=== PATIENT | male | born 1940 | race Caucasian/White ===

== ENCOUNTER 2020-08-02 08:03 | Outpatient (CLI) | payer MEDICARE, OTHER, SELFPAY ==
--- NOTE | 2020-08-02 08:15 | XRR_ITS ---
PROCEDURE INFORMATION: Exam: XR Abdomen, 1 View Exam date and time: 08/02/2020 8:25 AM Age: 79 years old Clinical indication: Condition or disease; Kidney or ureter condition; Calculus (stone) in ureter; Additional info: Ureteral stone TECHNIQUE: Imaging protocol: XR of the abdomen. Views: Frontal supine view of the abdomen. 1 View. COMPARISON: CR XR KUB [id number] 07/20/2019 8:53 AM FINDINGS: Gastrointestinal tract: Prominent stool, which partially obscures the renal fossa. Intraperitoneal space: Nonspecific punctate pelvic calcifications, which can be better evaluated with CT, if urolithiasis is of clinical concern. Bones/joints: Degenerative change and scoliosis. XR/XR KUB [id number] IMPRESSION: Nonspecific punctate pelvic calcifications, which can be better evaluated with CT, if urolithiasis is of clinical concern.
== END 2020-08-02 08:04 | disposition home or self-care (01) ==
LOC: RAD 08:11
PROVIDERS: PCP Family Medicine; Visit Provider Urology
DX: N20.1 Calculus of ureter (principal)
CPT/HCPCS: 74018; 81001

== ENCOUNTER 2021-03-02 08:01 | Outpatient (CLI) | payer MEDICARE, OTHER, SELFPAY ==
--- NOTE | 2021-03-02 08:00 | CT_ITS ---
WS: [id number] CT ABDOMEN PELVIS TECHNIQUE: Contrast-enhanced CT of the abdomen and pelvis with coronal and sagittal reformatted image s. CLINICAL INFORMATION: NAUSEA, ABNORMAL WEIGHT LOSS COMPARISON: CT 7 9,018 DLP: 1102.[address] scans at [facility] use at least one of these dose optimization techniques: automat ed exposure control; mA and/or kV adjustment per patient size (includes targeted exams where dose is matched to clinical indication); or iterative reconstruction. FINDINGS: Mild diffuse fatty infiltration of the liver. Portal vein and splenic vein are patent. Prominent gall stone measuring 1.5 CM. Gallbladder is contracted. Gallstone is unchanged from previous. Normal splee n. Normal GE junction. Fatty atrophy of the pancreas. Lung bases are well aerated. Moderate aortic calcification. No aneurysm. Adrenal glands are normal. Normal renal parenchymal enhan cement. No obstructing renal or ureteral calculi. Pelvic phleboliths. Tiny right renal cyst. No abdom inal or pelvic lymphadenopathy. No inguinal lymphadenopathy. Heterogeneously enhancing enlarged prost ate measuring 2.8 x 3.3 x 3.3 cm with diffuse bladder wall thickening consistent with bladder outlet obstruction. Sigmoid diverticulosis. No evidence of acute diverticulitis. Mild constipation. Normal a ppendix. No evidence of small or large bowel obstruction. Moderate spondylitic changes lumbar spine. CT/CT abdomen pelvis w con* [id number] IMPRESSION: 1. Sigmoid diverticulosis. No signs of acute diverticulitis. 2. Cholelithiasis with prominent gallstone measuring 0.5 cm. Gallbladder is co ntracted. Gallbladder can be further evaluated ultrasound. 3. Enlarged prostate with diffuse bladder wall thickening likely due to bladde r outlet obstruction. Recommend correlation PSA. 4. No hydronephrosis in either kidney. 5. Normal caliber abdominal aorta.
[2021-03-02] MEDS: iohexol 300 mg/mL 50 mL Btl PO (08:26)
[2021-03-02] MEDS: iohexol 300 mg/mL 100 mL Btl IV (09:37)
== END 2021-03-02 08:02 | disposition home or self-care (01) ==
PROVIDERS: PCP Family Medicine; Visit Provider Family Medicine
DX: R63.4 Abnormal weight loss (principal); R11.0 Nausea; N40.0 Benign prostatic hyperplasia without lower urinary tract symptoms; K80.20 Calculus of gallbladder without cholecystitis without obstruction; K57.30 Diverticulosis of large intestine without perforation or abscess without bleeding
CPT/HCPCS: 74177; Q9967

== ENCOUNTER 2021-03-16 07:41 | Outpatient (CLI) | payer MEDICARE, OTHER, SELFPAY ==
--- NOTE | 2021-03-16 07:53 | US_ITS ---
WS: [id number] RIGHT UPPER QUADRANT ULTRASOUND HISTORY: CALCULUS OF GALLBLADDER COMPARISON: None available. Liver: 12.4 cm in length. Normal size liver. No bile duct dilatation or mass. Gallbladder: Normally distended gallbladder with stones and shadowing. No wall thickening is apprecia jose g but the wall is difficult to see due to the large stones. CBD: 0.5 cm Pancreas: Normal size and echogenicity. Right kidney: 9.2 cm in length. Normal size and echogenicity. No hydronephrosis or mass. Aorta and IVC: Mild ectasia with atherosclerosis. No ascites. US/US abdomen limited [id number] IMPRESSION: 1. Cholelithiasis without evidence for acute cholecystitis. 2. Mild ectasia abdominal aorta. 3. No bile duct dilatation.
== END 2021-03-16 07:42 | disposition home or self-care (01) ==
LOC: RAD 07:44
PROVIDERS: PCP Family Medicine; Visit Provider Family Medicine
DX: K80.20 Calculus of gallbladder without cholecystitis without obstruction (principal); I77.811 Abdominal aortic ectasia
CPT/HCPCS: 76705

== ENCOUNTER 2021-04-27 11:23 | Outpatient (CLI) | payer MEDICARE, OTHER, SELFPAY ==
--- NOTE | 2021-04-27 11:36 | XR_ITS ---
WS: [id number] KUB, AP view, 04/27/2021 Clinical Data: URETERAL STONE Comparison: KUB, 08/02/2020. 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 There is a large am ount of fecal material throughout the colon which obscures detail over both kidneys. XR/XR KUB [id number] Impression: Negative KUB.
== END 2021-04-27 11:24 | disposition home or self-care (01) ==
LOC: RAD 11:28
PROVIDERS: PCP Family Medicine; Visit Provider Urology
DX: N20.1 Calculus of ureter (principal); R97.20 Elevated prostate specific antigen [PSA]
CPT/HCPCS: 74018; 81003; 84153

== ENCOUNTER 2021-05-11 08:23 | Outpatient (CLI) | payer MEDICARE, OTHER, SELFPAY ==
--- NOTE | 2021-05-11 08:30 | XR_ITS ---
WS: [id number] KUB, AP view, 05/11/2021 Clinical Data: stones Comparison: KUB, 04/27/2021. Findings: No abnormal intraabdominal masses or calcifications are seen. There is no dilatated small bowel or ev idence of obstruction. There is a large amount of fecal serial in the charles ascending and transverse colon. There is a levosco liosis of the lower lumbar spine with a dextroscoliosis in the upper lumbar spine. XR/XR KUB [id number] Impression: Negative KUB.
== END 2021-05-11 08:24 | disposition home or self-care (01) ==
LOC: RAD 08:27
PROVIDERS: PCP Family Medicine; Visit Provider Urology
DX: N20.2 Calculus of kidney with calculus of ureter (principal)
CPT/HCPCS: 74018; 81003

== ENCOUNTER → 2021-09-26 07:44 | Outpatient (BNVA) | payer MEDICARE, OTHER, SELFPAY | PROVIDERS: PCP Family Medicine; Visit Provider Urology | DX: N40.1 Benign prostatic hyperplasia with lower urinary tract symptoms (principal); R97.20 Elevated prostate specific antigen [PSA]; R10.9 Unspecified abdominal pain; N20.2 Calculus of kidney with calculus of ureter | CPT/HCPCS: 81003; 84153 ==

== ENCOUNTER 2022-01-06 10:57 | Emergency (ER) | payer MEDICARE, OTHER, SELFPAY ==
[2022-01-06 11:06] VITALS: BP 127/70; PULSE 76; RESP 16; TEMP 37.3; O2SAT 97; BMI 19.8
--- NOTE | 2022-01-06 11:13 | W.ED.SKABFB ---
HPI - Skin/Abscess/Foreign Bdy General: Chief complaint: Skin/Abscess/Foreign Body Stated complaint: Shingles Time Seen by Provider: 01/06/22 11:10 Source: patient Mode of arrival: ambulatory Limitations: no limitations History of Present Illness: 81-year-old male presents to the ER today for nerve pain associated with shingles that has been going on for about 1 week. Patient reports he had shingles about 15 years ago and has dealt with ongoing nerve pain in the right side of his forehead since. Patient denies any new lesions at this time however reports about a week ago he started experiencing the pain in the right side of his head going down into his neck. Patient reports he has also been ill over the last week or so with decreased appetite, cough, body aches. Patient denies any fevers that he knows of. He did not get a flu shot this year. Patient reports he takes gabapentin 100 mg twice daily for nerve pain however this does not seem to be touching at this time. Patient reports typically these flareups last 2 days and then improve however this 1 is not improving. Onset (ago): week(s) (1 week) Location: head Quality: burning Pain Consistency: constant Relieving factors: none Associated symptoms: Reports arthralgias, chills and cough Review of Systems Const: Reports: chills, body aches and change in appetite Resp: Reports: productive cough PFSH ED PFSH: Medical History Elevated PSA HTN (hypertension) Trigeminal neuralgia Surgical History Hx of lithotripsy URETEROSCOPY WITH STONE MANIPULATION Social History Second hand smoke exposure: No Smoking risk assessment/counseling performed?: No Alcohol intake: never Adopted: No Caregiver/support person: No Lives independently: No Household members: spouse Marital status: Current occupational status: retired History of recent travel: No Physical Exam Const: COMMON NORMALS: no acute distress, average body habitus, patient oriented x3, no limitations, healthy appearing, alert and well nourished HENMT: COMMON NORMALS: normocephalic HEAD & SCALP: normal to inspection and normocephalic OTHER: There are no lesions visible on the right side of the forehead or the scalp that appear to be shingles at this time. Eye: COMMON NORMALS: conjunctivae normal CONJUNCTIVA: Yes conjunctivae normal Neck/C-Spine: COMMON NORMALS: full ROM and no lymphadenopathy Resp: COMMON NORMALS: normal respiratory effort, No retractions and clear to auscultation bilaterally AUSCULTATION: clear to auscultation bilaterally Cardio: COMMON NORMALS: regular rate, regular rhythm and No murmurs present (Cardio) RATE: regular rate RHYTHM: regular rhythm Extremity: COMMON NORMALS: normal to inspection and full ROM Neuro: COMMON NORMALS: patient oriented x3 SENSORIUM/ORIENTATION: Yes alert Psych: COMMON NORMALS: mental status grossly normal, Normal thought process present and cooperative THOUGHT PROCESS: Normal thought process present Skin: OTHER: See head exam Course ED course: Patient presents to the ER today for possible flareup of shingles x1 week. Patient reports he has this for the last 15 years and reports that usually last 2 days however this is not improving after 1 week. Patient reports he is also just not felt well in general for about a week. He reports decreased appetite, cough, body aches. Denies having had a flu shot this year. Denies fever that he knows of. Patient has been taking 100 mg twice daily of gabapentin with minimal improvement in nerve pain. We will get a flu swab today as this may be making his pain worse because he is ill. Otherwise we will increase patient's gabapentin. He is outside the window of an antiviral at this time and there is no obvious rash noted. Vital Signs: Vital signs: Vital Signs Temperature 99.1 F 01/06/22 11:06 Pulse Rate 76 01/06/22 11:06 Respiratory Rate 16 01/06/22 11:06 Blood Pressure 127/70 01/06/22 11:06 Pulse Oximetry 97 01/06/22 11:06 MDM - Skin/Abscess/Foreign Bdy Medicial Decision Making 81-year-old male presents to the ER today for nerve pain associated with shingles that has been going on for about 1 week. Patient reports he had shingles about 15 years ago and has dealt with ongoing nerve pain in the right side of his forehead since. Patient denies any new lesions at this time however reports about a week ago he started experiencing the pain in the right side of his head going down into his neck. Patient reports he has also been ill over the last week or so with decreased appetite, cough, body aches. A flu swab was performed in ER and was negative. Patient has no obvious lesions on the head or scalp. Likely this is chronic nerve pain associated with the shingles. We will increase patient's gabapentin to 200 mg twice daily. He had been taking 100 mg twice a day. We will also try a Medrol Dosepak given patient's other symptoms and to see if that helps with the neck pain he is reporting. Patient should follow-up with his PCP in 3 to 5 days. Return to the ER with any new or worsening symptoms. Patient verbalized understanding and is in agreement with the treatment plan. Lab Data Laboratory Results Influenza Type A Ag Negative (Negative) 01/06/22 11:46 Influenza Type B Ag Negative (Negative) 01/06/22 11:46 Critical Care Time Critical Care Time: Critical Care Time: No Discharge Plan Discharge Patient Disposition: Home Clinical Impression: Shingles (herpes zoster) polyneuropathy, Malaise and fatigue Condition: Stable Prescriptions: New Medrol (Gabo) 4 mg tablets,dose pack See Rx Instructions .ROUTE .COMPLEX Qty: 21 0RF Rx Instructions: orally per package directions gabapentin 100 mg capsule 200 mg PO BID Qty: 120 0RF No Action aspirin [Adult Low Dose Aspirin] 81 mg tablet,delayed release (DR/EC) 81 mg PO DAILY 0RF metoprolol succinate 25 mg tablet extended release 24 hr 12.5 mg PO DAILY 0RF Probiotic Plus and Cranberry 250-30-39.5 mg capsule PO .prn 0RF Discharge Orders: Discharge ED (Routine); Ordered 01/06/22 Ordered By: Jaylyn Sidhu Referrals: Quynh Reynolds MD [Primary Care Provider] - Discharge Diet: Usual diet Discharge Activity: Resume usual activity Patient Instructions: Opioid Safety Activity Restrictions/Additional Instructions: Take Medrol Dosepak and gabapentin as discussed. Rest recommended. Push fluids. Follow-up with PCP in 3 to 5 days. Return to the ER with new or worsening symptoms. 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
[2022-01-06 12:55] LABS: Influenza A by IFA Negative (Negative); Influenza B by IFA Negative (Negative)
[2022-01-06 13:19] VITALS: PULSE 78; RESP 16; O2SAT 97
== END 2022-01-06 13:20 | disposition home or self-care (01) ==
PROVIDERS: Emergency Provider Physician Assistant; PCP Family Medicine
DX: B02.23 Postherpetic polyneuropathy (principal); R53.81 Other malaise; R53.83 Other fatigue; Z79.82 Long term (current) use of aspirin; I10 Essential (primary) hypertension
CPT/HCPCS: 87804; 99282

== ENCOUNTER → 2022-02-26 07:54 | Outpatient (BNVA) | payer MEDICARE, OTHER, SELFPAY | PROVIDERS: PCP Family Medicine; Visit Provider Urology | DX: N40.1 Benign prostatic hyperplasia with lower urinary tract symptoms (principal) | CPT/HCPCS: 81003 ==

== ENCOUNTER 2022-09-03 09:43 | Outpatient (CLI) | payer MEDICARE, OTHER, SELFPAY ==
[2022-09-03 10:43] LABS: Prostate Specific AG Urology 10.74 ng/mL (0-4)
== END 2022-09-03 09:44 | disposition home or self-care (01) ==
LOC: RAD 09:44
PROVIDERS: PCP Family Medicine; Visit Provider Urology
DX: R97.20 Elevated prostate specific antigen [PSA] (principal)
CPT/HCPCS: 84153

== ENCOUNTER → 2022-09-04 10:15 | Outpatient (BNVA) | payer MEDICARE, OTHER, SELFPAY | PROVIDERS: PCP Family Medicine; Visit Provider Urology | DX: N40.1 Benign prostatic hyperplasia with lower urinary tract symptoms (principal); R97.20 Elevated prostate specific antigen [PSA] | CPT/HCPCS: 81003; 99213 ==

== ENCOUNTER 2023-02-06 11:19 | Outpatient (CLI) | payer MEDICARE, OTHER, SELFPAY ==
--- NOTE | 2023-02-06 11:36 | XR_ITS ---
WS: [id number] XR shoulder RT min 2V* [id number] REASON FOR EXAM: PAIN IN RT SHOULDER FINDINGS: No fracture or focal bone lesion. Moderate narrowing of the acromioclavicular joint with mild subchondral sclerosis. Glenohumeral joint is intact without significant narrowing. Mild subchondral sclerosis of the glenoid . Mild/moderate subchondral sclerosis and cystic change of the biceps tuberosity. No soft tissue abnormality. XR/XR shoulder RT min 2V* [id number] IMPRESSION: Relatively mild acromioclavicular, glenohumeral, and rotator cuff tendon arthro malcolm for age. No acute abnormality.
== END 2023-02-06 11:20 | disposition home or self-care (01) ==
LOC: RAD 11:29
PROVIDERS: PCP Family Medicine; Visit Provider Family Medicine
DX: M25.511 Pain in right shoulder (principal)
CPT/HCPCS: 73030

== ENCOUNTER 2023-02-28 10:12 | Outpatient (CLI) | payer MEDICARE, OTHER, SELFPAY | END 2023-02-28 10:13 | disposition home or self-care (01) | LOC: LAB 10:17 | PROVIDERS: PCP Family Medicine; Visit Provider Urology | DX: R97.20 Elevated prostate specific antigen [PSA] (principal) | CPT/HCPCS: 36415; 84153 ==

== ENCOUNTER → 2023-03-04 10:42 | Outpatient (BNVA) | payer MEDICARE, OTHER, SELFPAY | PROVIDERS: PCP Family Medicine; Visit Provider Urology | DX: N40.1 Benign prostatic hyperplasia with lower urinary tract symptoms (principal) | CPT/HCPCS: 51798; 81003; 99213 ==